=== PATIENT | female | born 1990 | race Caucasian/White ===

== ENCOUNTER 2024-04-09 18:09 | Emergency (ER) | payer OTHER, SELFPAY ==
[2024-04-09 18:15] VITALS: BP 131/91
[2024-04-09 19:24] LABS: Urine Albumin Negative (Neg - Trace); Urine Bilirubin Negative (Negative); Urine Character Clear (Clear); Urine Color Yellow; Urine Glucose Negative (Negative); Urine Ketone Negative (Negative); Urine Leukocyte Negative (Negative); Urine Nitrite Negative (Negative); Urine Occult Blood 2+ (Negative); Urine Urobilinogen Negative (Neg - 1+)
[2024-04-09 20:00] LABS: Urine White Cell 0-2 /HPF (0-5)
--- NOTE | 2024-04-09 21:36 | ED.GENMED ---
History of Present Illness
General
Chief Complaint: Female [employer]/Gu symptoms
Source: patient
Exam Limitations: none
Time Seen by Provider: 04/09/24 21:29
Nursing documentation reviewed up to this point in time: agreed with
History of Present Illness
History of Present Illness:
Patient is a 33-year-old female who presents to the ER for evaluation of right groin/thigh pain. She started with pain last night though she denies any injury. Today she complains of pain in the right groin with movement. She does report that
walking up steps makes things worse. She denies any obvious swelling fever chills redness. She noticed some swelling to the right medial knee but that is since resolved.
She has been worked up for lupus in the past and has a questionable rheumatological disorder. She denies any trauma or overuse injury. She denies any recent exercise. She denies any recent urinary frequency or urgency. Denies any back pain.
Denies any abdominal pain.
She takes control, (The O pill from [employer]). She does vape nicotine.
Past History
Past History
ED Past Medical History: Asthma
ED Past Surgical History: None
Social History
Tobacco: Non-smoker
Alcohol: None
Drug: None
Living: with family
Employment: Student
Family History
Family History: Other (Noncontributory)
Review of Systems
Review of Systems
Allergies reviewed?: Yes
All Other Systems: ROS reviewed and negative except as documented in HPI and ROS
Constitutional: Reports no symptoms; Denies fever, fatigue or chills
Musculoskeletal: Reports other (right groin pain )
Skin: Reports no symptoms
Neurological: Reports no symptoms
Psychiatric: Reports no symptoms
Phy Exam
General Physical Exam
General Presentation: no apparent distress
General age: appears stated age
General Skin: warm and dry
General Habitus: normal
General Mental: alert
Neurological Exam
Neurological Exam: alert and oriented x3
Musculoskeletal Exam
Musculoskeletal Exam: other (Normal exam to lower extremities with strong pulses to right lower extremity no obvious swelling or redness to thigh + discomfort with lifting leg off of stretcher )
Skin Exam
Skin Exam: normal color and warm/dry
Psychiatric Exam
Psychiatric Exam: normal mood/affect
Course
Orders/Labs/Results
Orders:
Orders
04/09/24 19:02
Urine Culture Reflexed from UA [Urinalysis Reflex To Culture] Urgent
Date Specimen was Collected: 04/09/24
Time Specimen was Collected: 18:18
Urine Microscopic Reflex Cult Urgent
04/09/24 22:13
IV Insert/Care/Rem.- Treatment PRN
Ketorolac [Toradol] 15 mg IV NOW STA
04/09/24 22:14
Acetaminophen [Tylenol] 1,000 mg PO NOW STA
Test Result ONCE
Hip, Right 2-3 Views [CR Hip - RT w/wo Pel 2-3 Vw*] Urgent
Comment:
Reason For Exam: pain right groin
Include a pelvis x-ray?: Yes
Venous Doppler Lwr Ext Rt [US Periph Venous LOWER Ext RT] Urgent
Comment:
Reason For Exam: right thigh/groin pain
04/09/24 22:18
Complete Blood Count/With Diff Urgent
Comprehensive Metabolic Panel Urgent
HCG, Serum Qualitative Screen Urgent
Abnormal Lab Results
04/09/24 04/09/24
19:02 22:18
RBC 4.14 L 10^6/uL
(4.20-5.40)
Hct 36.6 L %
(37.0-47.0)
Absolute Neuts (auto) 7.2 H 10^3/uL
(1.4-6.5)
Ur Occult Blood Reflex 2+ A
(Negative)
Urine RBC 3-6 A /HPF
(0-2)
04/09/24 22:18
04/09/24 22:18
Vital Signs
Initial and Last Documented VS:
Initial Vital Signs
Temp Pulse Resp BP Pulse Ox
98.6 F 81 18 131/91 99
04/09/24 18:15 04/09/24 18:15 04/09/24 18:15 04/09/24 18:15 04/09/24 18:15
Last Documented Vital Signs
Temp Pulse Resp BP Pulse Ox
98.6 F 51 16 111/64 99
04/09/24 18:15 04/09/24 23:32 04/09/24 23:32 04/09/24 23:32 04/09/24 23:32
MDM/Problems Addressed
MDM/Problems Addressed:
Patient complains of right groin pain no new injury. On exam there is no abnormal findings no concerning symptoms for infection such as redness. There is no swelling. Ultrasound negative. She has good strong pulses and distal sensation. She
denies any back pain UTI symptoms no history of kidney stones. Pain is worse with lifting leg walking up steps and moving.
Labs unremarkable. X-ray was ordered but patient wishes to hold off. She did have relief with Tylenol and Toradol.
Discussed close outpatient follow-up with family doctor the next 4 days as well as orthopedics if no improvement discussed ice and ibuprofen and Tylenol to return if any worsening of s/s. likely muscular.
*Critical Care Note
Total Time (30-74mins, 75-104mins- exclusive of procedures): Not Applicable
ED Attending Note
-
Portions of this chart may have been created with voice recognition software.� Occasional wrong word or��sound alike� substitutions may have occurred due to the inherent limitations of voice recognition software.
Discharge Plan
Departure
Patient Disposition: Home (Routine Discharge)
Date of Disposition: 04/09/24
Time of Disposition: 23:29
Patient with high blood pressure during this ER visit?: Yes
Condition: Fair
Covid-19: Not Applicable
Discharge Problem:
muscle and bone pain
Instructions: Muscle, joint, and bone pain - Discharge instructions, BLOOD PRESSURE
Prescriptions:
No Action
albuterol sulfate 2.5 MG/3 ML solution for nebulization
2.5 mg inhalation PRN PRN (Reason: prn)
albuterol sulfate [Albuterol Sulfate HFA] 18 GM HFA aerosol inhaler
18 gm inhalation PRN PRN (Reason: shortness of breath)
prednisone 50 MG tablet
50 mg PO DAILY Qty: 4 0RF
albuterol sulfate [Albuterol Sulfate HFA] 18 GM HFA aerosol inhaler
2 puff inhalation QIDPRN PRN (Reason: cough/wheeze) Qty: 1 0RF
albuterol sulfate 2.5 MG/3 ML solution for nebulization
2.5 mg inhalation R QID PRN (Reason: shortness of breath, wheezing) Qty: 60 0RF
Referrals:
Shagufta Pino CRNP [Family Provider] -
Heath Karimi MD [Active] -
Activity Restrictions/Additional Instructions:
As discussed take ibuprofen every 8 hours and you may alternate with Tylenol. You may try icing the area for the next 24 to 48 hours 20 minutes at a time several times a day. Please follow with your family doctor in the next several days for
reevaluation of symptoms .if no improvement follow up with orthopedic doctor.
Return if any worsening of symptoms
Interventions
Interventions:
*General Assessment Last Done: 04/09/24 18:15
*Neglect/Abuse Screening Last Done: 04/09/24 20:30
ED- Fall Risk Assessment Last Done: 04/09/24 20:30
*ED COVID-19 Vaccine History Last Done: 04/09/24 20:30
ED-Female Genitourinary Assessment Last Done: 04/09/24 20:30
Discharge Date and Time
Print Language: [place]
[2024-04-09] MEDS: TYLENOL 1000 MG PO (22:18)
[2024-04-09] MEDS: TORADOL 15 MG IV (22:19)
[2024-04-09 22:38] LABS: % Basophils 0.7 % (0-2); % Eosinophils 0.6 % (0-6); % Immature Granulocytes 0.2 % (0-0.5); % Lymphocytes 21.5 % (20.5-51.1); % Monocytes 5.9 % (1.7-9.3); % Neutrophils 71.1 % (42.2-75.2); Absolute Basophils 0.1 10^3/uL (0-0.2); Absolute Eosinophils 0.1 10^3/uL (0-0.7); Absolute Lymphocytes 2.2 10^3/uL (1.2-3.4); Absolute Monocytes 0.6 10^3/uL (0.1-0.6); Absolute Neutrophils 7.2 10^3/uL (1.4-6.5); Hematocrit 36.6 % (37.0-47.0); Hemoglobin 12.5 g/dL (12.0-16.0); Mean Corp Hgb Conc. 34.2 g/dL (33.0-37.0); Mean Corpuscular Hgb 30.2 pg (27.0-31.0); Mean Corpuscular Volume 88.4 fL (81.0-99.0); Mean Platelet Volume 10.1 fL (7.4-10.4); Nucleated Red Blood Cells % 0 %; Platelet Count 262 10^3/uL (130-400); Red Blood Cell Count 4.14 10^6/uL (4.20-5.40); Red Cell Dist. Width 12.5 % (11.5-14.5); White Blood Cell Count 10.2 10^3/uL (4.8-10.8)
[2024-04-09 22:47] LABS: HCG, Serum Qualitative Screen Negative
[2024-04-09 22:52] LABS: ALT (SGPT) 13 U/L (0-35); AST (SGOT) 22 U/L (14-36); Albumin 4.9 g/dl (3.5-5.0); Alkaline Phosphatase 57 U/L (38-126); Blood Urea Nitrogen 10 mg/dl (7-17); Calcium 9.4 mg/dl (8.4-10.2); Carbon Dioxide 25 mmol/L (22-30); Chloride 101 mmol/L (98-107); Glucose 94 mg/dl (70-99); Potassium 3.9 mmol/L (3.5-5.1); Sodium 136 mmol/L (135-145); Total Bilirubin 1.2 mg/dl (0.2-1.3); Total Protein 7.5 g/dl (6.3-8.2); eGFR > 60.00
[2024-04-09 23:32] VITALS: BP 111/64
== END 2024-04-09 23:42 | disposition home or self-care (01) ==
LOC: EMR 18:09
PROVIDERS: Emergency Medicine; Nurse Practitioner; EMERGENCY PHYSICIAN Student in an Organized Health Care Education/Training Program; FAMILY PHYSICIAN Nurse Practitioner Adult Health
DX: M79.18 Myalgia, other site (principal); M89.8X9 Other specified disorders of bone, unspecified site; M79.651 Pain in right thigh; J45.909 Unspecified asthma, uncomplicated
CPT/HCPCS: 96374; 99284; 80053; 81003; 81015; 84703; 85025; 93971